=== PATIENT | male | born 1995 | race Caucasian/White ===

== ENCOUNTER 2017-10-07 15:00 | Emergency (ER) | payer OTHER ==
[~2017-10-07] VITALS: Ht 177.8 cm; Wt 91.3 kg
[~2017-10-07 15:00] MED LIST: LAMO100T16 PO; POTA1080 PO
[2017-10-07 15:03] VITALS: TEMP 37.2; Ht 177.8 cm; Wt 91.3 kg
[2017-10-07] MEDS ORDERED: LIDOCAINE 1% BUFFERED INJ 5 ML VIAL INFIL ONE (15:45)
[2017-10-07 17:00] VITALS: BP 115/76; PULSE 65; O2SAT 99
[2017-10-07] MEDS ORDERED: CEPH500C2 PO (17:00)
--- NOTE | 2017-10-07 20:54 | EMERGENCY ROOM VISIT NOTE ---
ED Visit Note First contact with patient: 15:12 Chief Complaint: I have a splint in my left index finger. History of Present Illness: Mr. Lynch is a 22-year-old white male who ambulates into the ED accompanied by his mother and a female friend complaining of a splinter embedded in the palmar aspect of the left index finger in the crease for the DIP joint. Patient reports that yesterday while lifting lumbar he impaled the splint in his finger. Since that time he reports he has been using a utility knife to attempt to get the splinter out. He reports he removed small fragments of the splinter but believes there is still some splinter left. Patient complains of a pinprick-like pain in the area of his splinter. With the DIP joint fully extended there is no discomfort but when he flexes the DIP joint is when he develops pinprick-like pain. He rates this discomfort 4/10. Pain is nonradiating. His pain also worsens with palpation. He has not taken any medications for pain prior to arrival at the hospital. He did note when he looked at his wound after using a utility knife to get the splinter out today there was some redness and mild puslike drainage. He denies fevers, chills, sweats, lymphangitis, chest pain, shortness of breath , abdominal pain, decreased appetite, finger weakness/numbness/tingling. Review of Systems: As noted above in history of present illness. 5 body systems were reviewed and found to be negative as noted above. Past Medical History: Tourette's syndrome, attention deficit disorder. Current Medications: Patient denies. Allergies to Medications: Penicillin. Social History: Patient is currently employed; he feels safe in his home environment; he denies tobacco use but admits to alcohol use. Physical Examination: Vital Signs: Date Time Temp Pulse Resp B/P (MAP) Pulse Ox O2 Delivery O2 Flow Rate FiO2 10/07/17 17:00 65 18 115/76 99 Room Air 10/07/17 15:03 37.2 84 18 138/78 99 Room Air GENERAL: 22-year-old male in mild distress due to symptoms, nontoxic-appearing, afebrile and hemodynamically stable. NEUROLOGICAL: Awake, alert and oriented to person, place and time. Answering questions appropriately and following commands. Normal gait. Good hand eye coordination. No focal motor or sensory deficits. SKIN: Warm, dry and pink. Left Index Finger: He has a approximately 1 cm open wound over the DIP joint. There is mild erythema and some crusty like pus within the wound. No visible foreign body was noted. LEFT INDEX FINGER: No gross bony deformity. Soft tissue injury as noted above under SKIN. Full range of motion in flexion and extension of the MCP and PIP joint. Slight decrease in flexion in the DIP joint due to pain. He does have full extension in the MCP, PIP and DIP joints. Throughout the finger the skin is warm and pink and capillary refill is brisk. He is able to distinguish light sensations to all dermatomes of the finger. ED Course: Patient is assessed as noted above. Patient's medication list was reviewed. Patient was offered pain medication and refused. A digital block was performed on the finger with approximately 2.8 mg of 1% buffered lidocaine. The area in question was incised with a scalpel. Tourniquet was placed on the finger and the blood was exsanguinated out of the finger for better observation. No foreign bodies were noted or palpable. The wound was cleansed with antibacterial soap and water and bleeding controlled. Bacitracin dressing was applied to the area. Patient was educated about today's findings and instructed on his treatment plan ; he verbalized understanding and agreement with this plan. Clinical Impression: Evaluation for left index finger foreign body. Disposition: Patient discharged home in stable condition accompanied by his mother; prior to departure he was reassessed and subjectively reported that he was pain and symptom-free. Plan: Comfort measures and wound care were discussed with the patient. Patient was prescribed a 5 day course of Keflex 500 mg. Patient was educated on worsening signs of infection. Patient was encouraged to follow-up with his PCP or return to the ED in 36-48 hours for recheck. Patient was encouraged return the ED sooner for any signs of worsening infection , uncontrolled pain or any new/concerning symptoms.
== END 2017-10-07 17:09 | disposition home or self-care (01) ==
LOC: C.EDB 15:01 → C.EDD 17:09
DX: M79.5 Residual foreign body in soft tissue (principal); X58.XXXA Exposure to other specified factors, initial encounter; Z88.0 Allergy status to penicillin